=== PATIENT | male | born 1965 | race Caucasian/White ===

== ENCOUNTER 2021-04-25 07:10 | Day surgery (SDC) | payer OTHER, SELFPAY ==
[2021-04-23 07:47] VITALS: BMI 35.5
--- NOTE | 2021-04-25 07:21 | P.ANESASSM_ITS ---
Pre-Anesthetic Assessment Pre-Anesthetic Assessment: Height/Weight: Height 1.8 m Weight 115.666 kg Preop Diagnosis: colon polyps Proposed Procedure: Operation Date: 04/25/21 09:00 Proposed Procedures p Colonoscopy 18879 z86.010(Not Applicable) - Gio Soriano MD Familial anesthetic complications: harder to wak up Was Beta Vicki taken within 24 hours: N/A Was Clonidine taken within 24 hours: N/A Last intake: > 8 hrs Social: Social History: Tobacco and No alcohol Comment: cigar use Exam: Pre-Anes Outpt Exam: alert, oriented x 3, clear to auscultation bilaterally and regular rate & rhythm Airway: Cervical ROM: WNL MP: 2 Dentition: Partials Pulmonary: Pulmonary: Sleep apnea Hepatic: Comments: elevated LFTs occassionally Musc/skel: Comments: knee pain Anesthetic Plan: ASA status: 2 Anesthesia: MAC Risk of > 500 ml blood loss (7ml/kg in children): No PFSH Anesthesia PFSH: Family History Other CAD (coronary artery disease) Diabetes Hypertension Denies family history of Cancer Stroke Social History Smoking and tobacco status: current some day smoker cigars Alcohol intake: current Alcohol intake frequency: holidays/special occasions on ly Lives independently: Yes Household members: spouse Data Anesthesia Cardiac Studies: No Data to Display
[2021-04-25 07:33] VITALS: BP 130/77; PULSE 51; RESP 16; TEMP 36.1; O2SAT 98
[2021-04-25] MEDS: sodium chloride 0.9% 1,000 ML 30 ML IV (07:53)
--- NOTE | 2021-04-25 09:04 | W.PM.OPSFHP ---
Same Day Surgery H&P Indication for Procedure/HPI DATE OF PROCEDURE: April 25, 2021 CHIEF COMPLAINT/INDICATIONFOR SURGICAL PROCEDURE: I had polyps PREOP DIAGNOSIS: colon polyps PLANNED PROCEDRUE: Operation Date: 04/25/21 09:00 Proposed Procedures p Colonoscopy 27465 z86.010(Not Applicable) - Gio Soriano MD This is a pleasant 55 years old gentleman referred to my practice with history of colon polyps. Patient had a colonoscopy about 8 years ago and he denies currently any bleeding per rectum or history of colon cancer or nonintentional weight loss. Interim history 04/25/2021 Patient comes today for surveillance colonoscopy ROS All systems have been reviewed negative except as per the above or per problem list Medications/Allergies* Home Medications Medication Instructions Recorded Confirmed Type cholecalciferol (vitamin D3) 125 125 mcg PO DAILY 02/11/21 04/25/21 History mcg (5,000 unit) capsule Allergies/Adverse Reactions Allergy/AdvReac Type Severity Reaction Status Date / Time levofloxacin [From Levaquin] Allergy Severe blisters Verified 02/13/21 11:58 Current Medications: Generic Name Dose Route Start Last Admin Trade Name Freq PRN Reason Stop Dose Admin Sodium Chloride 1,000 mls @ 30 mls/hr 04/25/21 07:30 04/25/21 07:53 Sodium Chloride 0.9% IV 04/26/21 07:29 30 mls/hr .Q24H PATRICIA Administration Pertinent History/Comorbid Conditions* Family History (Updated 02/11/21 @ 08:36 by Flor Saenz) Diabetes CAD (coronary artery disease) Hypertension Denies family history of Cancer Stroke Social History Smoking and tobacco status: current some day smoker cigars Alcohol intake: current Alcohol intake frequency: holidays/special occasions only Lives independently: Yes Household members: spouse Pertinent Exam Findings alert, oriented x 3, clear to auscultation bilaterally, regular rate & rhythm and procedure specific exam findings (Abdominal examination nontender nondistended soft) Recommendations Surgery/Procedure today (Colonoscopy with possible biopsy) Other Plans: Plan of care; After thorough history and physical examination and reviewing the chart, plan to perform surveillance colonoscopy. I discussed with the patient in details the risks,benefits,alternatives and indications.The risk of aspiration, bleeding, soft tissue injury, perforation of the colon and other potential concomitant complications were explained to the patient in details,also the potential need for Laproscoy/Laparotomy to repair any related complications including but not limited to colectomy and or Closotomy.The patient understood this well and did agree to proceed. Rationale was carefully and clearly discussed with the patient.Appropriate informed consent have been reviewed and signed All questions have been answered and all concerns have been addressed to patient's satisfaction. Verbal and written Instructions were given to the patient for colonoscopy prep Coding Level of Care Code Acute Senior Account Executive for Tahir Mancia
[2021-04-25 09:29] VITALS: BP 94/61; PULSE 53; RESP 18; TEMP 36.3; O2SAT 94
--- NOTE | 2021-04-25 09:33 | ANE.PACU2 ---
Inpatient post-anesthesia follow up: Airway intact: Yes Vital signs: Temperature 97.4 F Pulse Rate 53 Respiratory Rate 18 Blood Pressure 94/61 Pulse Oximetry 94 Oxygen Delivery Me thod Room Air Oxygen Flow Rate Fraction of Inspir ed Oxygen Hydration adequate: Yes Nausea and vomiting: No Pain level: 1 Mental status: Baseline
[2021-04-25 09:42] VITALS: BP 107/66; PULSE 52; RESP 16; O2SAT 99
--- NOTE | 2021-04-25 16:54 | ANE.PACU2 ---
Inpatient post-anesthesia follow up: Airway intact: Yes Vital signs: Temperature 97.4 F Pulse Rate 52 Respiratory Rate 16 Blood Pressure 107/66 Pulse Oximetry 99 Oxygen Delivery Me thod Room Air Oxygen Flow Rate Fraction of Inspir ed Oxygen Hydration adequate: Yes Nausea and vomiting: No Pain level: 2 Mental status: Baseline
== END 2021-04-25 09:55 | disposition home or self-care (01) ==
PROVIDERS: Visit Provider Surgery
PROC: 0DJD8ZZ Inspection of Lower Intestinal Tract, Via Natural or Artificial Opening Endoscopic (ICD-10-PCS; CPT 45378; principal; 2021-04-25 09:00)
DX: Z12.11 Encounter for screening for malignant neoplasm of colon (principal); Z86.010 Personal history of colon polyps; Z82.49 Family history of ischemic heart disease and other diseases of the circulatory system; Z83.3 Family history of diabetes mellitus; G47.30 Sleep apnea, unspecified; F17.290 Nicotine dependence, other tobacco product, uncomplicated
CPT/HCPCS: 45378; 96360; 96361; J2704; J7030

== ENCOUNTER 2024-01-07 08:23 | Outpatient (CLI) | payer OTHER, SELFPAY | END 2024-01-07 08:24 | disposition home or self-care (01) | LOC: RT 08:24 | PROVIDERS: PCP Nurse Practitioner; Visit Provider Otolaryngology | DX: R05.3 Chronic cough (principal) | CPT/HCPCS: 94010; 94726; 94729 ==

== ENCOUNTER → 2024-02-12 10:21 | Outpatient (BNVA) | payer OTHER, SELFPAY | PROVIDERS: PCP Nurse Practitioner; Visit Provider Nurse Practitioner Family | DX: B35.1 Tinea unguium (principal); L73.8 Other specified follicular disorders; L57.0 Actinic keratosis; L81.4 Other melanin hyperpigmentation; L57.8 Other skin changes due to chronic exposure to nonionizing radiation; L82.1 Other seborrheic keratosis; D22.5 Melanocytic nevi of trunk; R20.2 Paresthesia of skin | CPT/HCPCS: 17000; 99213 ==

== ENCOUNTER → 2024-11-09 13:01 | Outpatient (BNVA) | payer OTHER, SELFPAY | PROVIDERS: PCP Nurse Practitioner; Visit Provider Nurse Practitioner Family | DX: L73.8 Other specified follicular disorders (principal); L81.4 Other melanin hyperpigmentation; L57.8 Other skin changes due to chronic exposure to nonionizing radiation; L82.1 Other seborrheic keratosis; D22.5 Melanocytic nevi of trunk; R20.2 Paresthesia of skin; L21.8 Other seborrheic dermatitis; L57.0 Actinic keratosis | CPT/HCPCS: 17000; 99214 ==

== ENCOUNTER → 2025-01-11 08:42 | Outpatient (BNVA) | payer OTHER, SELFPAY | PROVIDERS: PCP Nurse Practitioner; Visit Provider Nurse Practitioner Family | DX: L57.0 Actinic keratosis (principal); L21.8 Other seborrheic dermatitis; L73.8 Other specified follicular disorders | CPT/HCPCS: 99214 ==

== ENCOUNTER → 2025-02-21 10:18 | Outpatient (BNVA) | payer OTHER, SELFPAY | PROVIDERS: PCP Nurse Practitioner; Visit Provider Nurse Practitioner Family | DX: L21.8 Other seborrheic dermatitis (principal); S00.80XA Unspecified superficial injury of other part of head, initial encounter; X58.XXXA Exposure to other specified factors, initial encounter; L57.8 Other skin changes due to chronic exposure to nonionizing radiation; L57.0 Actinic keratosis | CPT/HCPCS: 17000; 99214 ==

== ENCOUNTER → 2025-04-14 10:47 | Outpatient (BNVA) | payer OTHER, SELFPAY | PROVIDERS: PCP Nurse Practitioner; Visit Provider Nurse Practitioner Family | DX: L21.8 Other seborrheic dermatitis (principal); S00.80XA Unspecified superficial injury of other part of head, initial encounter; X58.XXXA Exposure to other specified factors, initial encounter; L57.8 Other skin changes due to chronic exposure to nonionizing radiation; L57.0 Actinic keratosis | CPT/HCPCS: 17000; 99214 ==